=== PATIENT | female | born 1970 | race Caucasian/White ===

== ENCOUNTER 2021-05-03 17:18 | Emergency (ER) | payer BC, SELFPAY ==
--- NOTE | ~2021-05-03 | XR_ITS ---
EXAMINATION: XR chest 2V DATE: 05/03/2021 18:06 INDICATION: Cough. TECHNIQUE: Frontal and lateral views of the chest were obtained. COMPARISON: Chest 2 views 05/26/2016 FINDINGS: There is mild scarring at the lung apices. No pleural effusion or pneumothorax. The heart s ize is normal. IMPRESSION: 1. Stable mild scarring at the lung apices. Reviewed, dictated and finalized at location A. [employer]
[2021-05-03 17:26] VITALS: BP 148/83; PULSE 105; RESP 24; TEMP 37.3; O2SAT 98
[2021-05-03 17:49] VITALS: BP 148/83; PULSE 105; RESP 24; TEMP 37.3; O2SAT 98
--- NOTE | 2021-05-03 17:52 | ED.URI ---
HPI - URI/Sore Throat General Chief Complaint: Upper Respiratory Infection Stated Complaint: Chest Congestion/Shortness of Breath Source: patient Mode of arrival: ambulatory Limitations: no limitations History of Present Illness HPI Narrative: Patient is a 50-year-old female who presents complaining of cough x3 weeks. Patient was seen after Thanksgiving and was tested for Covid, Covid negative. Patient was also started on a Medrol Dosepak and patient called for continued cough and spoke with PCP and PCP called and a Z-Dm. Patient reports continued cough and shortness of breath. She reports chest heaviness. She denies all other complaints at this time. Patient reports a family history or PE/DVT. MD elicited complaint: cough Related Data Home Medications Medication Instructions Recorded Confirmed amitriptyline 50 mg PO DAILY 05/03/21 05/03/21 azithromycin 250 mg PO DAILY 05/03/21 05/03/21 cyclosporine [Restasis] 1 drp EACH EYE DAILY 05/03/21 05/03/21 fluticasone propionate 2 spray INTRANASAL DAILY 05/03/21 05/03/21 levothyroxine 50 mcg PO DAILY 05/03/21 05/03/21 montelukast 10 mg PO DAILY 05/03/21 05/03/21 Allergies Allergy/AdvReac Type Severity Reaction Status Date / Time codeine AdvReac Intermediate Confusion Verified 05/03/21 17:44 succinylcholine AdvReac Unknown Other Verified 05/03/21 17:44 Review of Systems Review of Systems: CONSTITUTIONAL: Denies fever, chills, or sweats. EYES: Denies visual changes, redness, or discharge. ENT: Denies rhinorrhea, congestion, sore throat, or otalgia. CARDIOVASCULAR: Denies chest pain, palpitations, or edema. RESPIRATORY: Reports cough. GASTROINTESTINAL: Denies abdominal pain, nausea, vomiting, or diarrhea. GENITOURINARY: Denies dysuria or hematuria. SKIN: Denies rash or itching. MUSCULOSKELETAL: Denies back pain, joint pain, or myalgia. NEUROLOGIC: Denies headache, numbness, dizziness, or weakness. PSYCHIATRIC: Denies anxiety or depression. [facility] Family History Family History Mother Asthma Social History Social History Smoking status: Never smoker Second hand tobacco smoke exposure: No Alcohol intake: never Comments At the time of signature, I have reviewed and agree with nursing past medical, surgical, social, and family history unless otherwise noted. Please see nursing chart for further information. There is no relevant family history pertinent to the presenting complaint. Exam Narrative: GENERAL: Well-appearing, well-nourished, and in no acute distress. HEAD: Normocephalic, atraumatic. EYES: EOMI. No redness or drainage. Conjunctiva are normal. ENT: Mucous membranes pink and moist. Nares clear. No rhinorrhea. TMs normal bilaterally. Throat normal. Uvula midline. NECK: AROM. Supple. No lymphadenopathy. CHEST: No respiratory distress. Clear to auscultation. HEART: Regular rate and rhythm. No murmur appreciated. Normal peripheral pulses. GI: Soft, nontender without rebound, or guarding. No distention. Bowel sounds normal in all quadrants. MUSCULOSKELETAL: No bony tenderness. EXTREMITIES: Normal range of motion. No edema. SKIN: Warm, dry, no rash. NEURO: No focal deficits. Alert and oriented x3. Gait steady. PSYCH: Normal affect. No signs of depression or anxiety. Course Vital Signs Vital signs: Vital Signs Temperature 37.3 C 05/03/21 17:26 Pulse Rate 105 H 05/03/21 17:26 Respiratory Rate 24 H 05/03/21 17:26 Blood Pressure 148/83 H 05/03/21 17:26 Pulse Oximetry 98 05/03/21 17:26 Temperature 37.3 C 05/03/21 17:49 Pulse Rate 105 H 05/03/21 17:49 Respiratory Rate 24 H 05/03/21 17:49 Blood Pressure 148/83 H 05/03/21 17:49 Pulse Oximetry 98 05/03/21 17:49 Reviewed-patient is informed that they may have pre-hypertension or hypertension based on a blood pressure reading. I recommend the patient call the primary c
== END 2021-05-03 19:07 | disposition short-term general hospital (02) ==
PROVIDERS: Emergency Provider Nurse Practitioner
DX: R05.9 Cough, unspecified (principal); R06.00 Dyspnea, unspecified; E03.9 Hypothyroidism, unspecified; G62.9 Polyneuropathy, unspecified
CPT/HCPCS: 71046; 99213; G0463